=== PATIENT | male | born 1935 | race Two or more races ===

== ENCOUNTER 2016-12-09 19:08 | Inpatient (IN) | payer MEDICARE, BC ==
[~2016-12-09] VITALS: Ht 172.7 cm; Wt 77.1 kg
[2016-12-09 20:41] LABS: BASOPHILS % (AUTO) 0.8 % (0.0-2.0); DIFF TOTAL % 100 %; EOSINOPHILS # (AUTO) 0.1 /CMM (0.0-0.7); EOSINOPHILS % (AUTO) 1.9 % (0.0-6.0); HEMATOCRIT 40 % (39-51); HEMOGLOBIN 13.7 g/dL (13.5-17.5); LYMPHOCYTES # (AUTO) 0.9 /CMM (0.8-4.8); LYMPHOCYTES % (AUTO) 21.3 % (20.0-44.0); MEAN CORPUSCULAR HEMOGLOBIN 33 PG (26.0-33.0); MEAN CORPUSCULAR HGB CONC 34 g/dl (31.0-36.0); MEAN CORPUSCULAR VOLUME 95 fL (80-96); MONOCYTES # (AUTO) 0.4 /CMM (0.1-1.30); MONOCYTES % (AUTO) 9.3 % (2.0-12.0); NEUTROPHILS # (AUTO) 2.9 /CMM (1.8-8.9); NEUTROPHILS % (AUTO) 66.7 % (43.0-81.0); PLATELET COUNT (AUTO) 172 /CMM (150-450); RED BLOOD CELL COUNT(AUTO) 4.19 MIL/uL (4.5-6.0); WHITE BLOOD COUNT (AUTO) 4.4 K/uL (4.3-11.0)
[2016-12-09 20:55] LABS: ANION GAP 15 (5-14); CALCIUM, SERUM 8.9 mg/dL (8.5-10.1); CARBON DIOXIDE 25 mmol/L (21-32); CHLORIDE 109 mmol/L (98-107); CREATININE 1.6 mg/dL (0.6-1.3); GLUCOSE 100 mg/dL (74-106); POTASSIUM 4.1 mmol/L (3.5-5.1); SODIUM SERUM 145 mmol/L (136-145); UREA NITROGEN, BLOOD 17 mg/dL (7-18)
[2016-12-09 20:58] LABS: ALANINE AMINOTRANSFERASE 37 U/L (12-78); ALBUMIN 3.7 g/dL (3.4-5.0); ASPARTATE AMINOTRANSFERASE 21 U/L (15-37); BILIRUBIN,DIRECT 0.2 mg/dL (0.0-0.2); BILIRUBIN,TOTAL 1.2 mg/dL (0.2-1.0); TOTAL PROTEIN, SERUM 6.6 g/dL (6.4-8.2)
[2016-12-09 20:59] LABS: ACETAMINOPHEN 0 ug/ml (10-30)
[2016-12-09 21:41] LABS: ADD UA MICROSCOPIC NO; KETONES,URINE NEGATIVE (NEGATIVE); LEUKOCYTE ESTERASE ,URINE NEGATIVE (NEGATIVE)
[2016-12-09 21:56] LABS: CANNABINOID, URINE NEGATIVE (NEGATIVE); PHENCYCLIDINE SCREEN,URINE NEGATIVE (NEGATIVE)
[2016-12-10] MEDS ORDERED: MAG HYDROX/AL HYDROX/SIMETH 30 ML UDC PO PRN (01:30)
[2016-12-10] MEDS ORDERED: MAGNESIUM HYDROXIDE 30 ML UDC PO PRN (01:30)
[2016-12-10] MEDS ORDERED: QUET50TA76 (01:30)
[2016-12-10] MEDS ORDERED: ACETAMINOPHEN 325 MG TABLET PO PRN (01:30)
[2016-12-10] MEDS ORDERED: RIVA3CAP5 (01:30)
[2016-12-10] MEDS ORDERED: SERT100T12 (01:30)
[2016-12-10] MEDS ORDERED: LEVO125T (01:30)
[2016-12-10] MEDS ORDERED: MEMA10TA PO (01:37)
[2016-12-10] MEDS ORDERED: BENA40TA67 PO (01:37)
[2016-12-10 04:19] VITALS: BP 101/59
[2016-12-10 08:00] VITALS: BP 106/65
[2016-12-10] MEDS: BENAZEPRIL HCL 20 MG TABLET PO SCH (09:24)
[2016-12-10] MEDS: LEVOTHYROXINE SODIUM 125 MCG TABLET PO SCH (09:24)
[2016-12-10] MEDS ORDERED: IV NS 0.9% 1,000 ML BAG IV ONE (13:00)
[2016-12-10] MEDS ORDERED: IV SET PRIMARY PUMP SET 1 EA INFUS.SET MC ONE ×2 (14:30→14:42)
[2016-12-10] MEDS: clonazePAM 0.5 MG TABLET PO PRN (14:40)
[2016-12-10] MEDS: SERTRALINE HCL 50 MG TABLET PO SCH (15:22)
[2016-12-10] MEDS: QUETIAPINE FUMARATE 25 MG TABLET PO SCH ×2 (15:22→18:30)
[2016-12-10 16:00] VITALS: BP 152/66
[2016-12-10 20:35] VITALS: BP 153/67
[2016-12-10] MEDS: TEMAZEPAM 7.5 MG CAPSULE PO PRN (21:06)
[2016-12-11 08:00] VITALS: BP 140/58
[2016-12-11 08:10] LABS: CALCIUM, SERUM 8.2 mg/dL (8.5-10.1); CREATININE 1.7 mg/dL (0.6-1.3); POTASSIUM 3.7 mmol/L (3.5-5.1)
[2016-12-11 08:24] LABS: THYROID STIMULATING HORMONE 0.507 uIU/mL (0.358-3.74)
[2016-12-11] MEDS: QUETIAPINE FUMARATE 25 MG TABLET PO SCH ×2 (09:14→17:49)
[2016-12-11] MEDS: BENAZEPRIL HCL 20 MG TABLET PO SCH (09:14)
[2016-12-11] MEDS: LEVOTHYROXINE SODIUM 125 MCG TABLET PO SCH (09:14)
[2016-12-11] MEDS: SERTRALINE HCL 50 MG TABLET PO SCH (09:14)
[2016-12-11] MEDS: clonazePAM 0.5 MG TABLET PO PRN ×2 (09:15→17:51)
[2016-12-11 16:00] VITALS: BP 100/60
[2016-12-11 19:55] VITALS: BP 114/49
[2016-12-12 07:20] LABS: CALCIUM, SERUM 8.3 mg/dL (8.5-10.1); CREATININE 1.6 mg/dL (0.6-1.3); PHOSPHORUS 2.8 mg/dL (2.5-4.9); POTASSIUM 3.6 mmol/L (3.5-5.1)
[2016-12-12 07:23] LABS: BASOPHILS % (AUTO) 0.1 % (0.0-2.0); DIFF TOTAL % 100 %; HEMATOCRIT 35 % (39-51); HEMOGLOBIN 12.1 g/dL (13.5-17.5); LYMPHOCYTES % (AUTO) 9.7 % (20.0-44.0); MEAN CORPUSCULAR HEMOGLOBIN 33 PG (26.0-33.0); MEAN CORPUSCULAR HGB CONC 35 g/dl (31.0-36.0); MEAN CORPUSCULAR VOLUME 95 fL (80-96); MONOCYTES # (AUTO) 0.5 /CMM (0.1-1.30); MONOCYTES % (AUTO) 4.4 % (2.0-12.0); NEUTROPHILS % (AUTO) 85.8 % (43.0-81.0); PLATELET COUNT (AUTO) 115 /CMM (150-450); RED BLOOD CELL COUNT(AUTO) 3.64 MIL/uL (4.5-6.0); WHITE BLOOD COUNT (AUTO) 10.5 K/uL (4.3-11.0)
[2016-12-12 08:30] VITALS: BP 151/74
[2016-12-12] MEDS: LEVOTHYROXINE SODIUM 125 MCG TABLET PO SCH (09:42)
[2016-12-12] MEDS: QUETIAPINE FUMARATE 25 MG TABLET PO SCH ×2 (09:42→16:59)
[2016-12-12] MEDS: clonazePAM 0.5 MG TABLET PO PRN (09:42)
[2016-12-12] MEDS: BENAZEPRIL HCL 20 MG TABLET PO SCH (09:42)
[2016-12-12] MEDS: SERTRALINE HCL 50 MG TABLET PO SCH (09:44)
[2016-12-12 20:28] VITALS: BP 128/74
[2016-12-13 08:21] LABS: CALCIUM, SERUM 8.6 mg/dL (8.5-10.1); CREATININE 1.4 mg/dL (0.6-1.3); PHOSPHORUS 2.8 mg/dL (2.5-4.9); POTASSIUM 3.7 mmol/L (3.5-5.1)
[2016-12-13 08:30] VITALS: BP 131/70
[2016-12-13] MEDS: BENAZEPRIL HCL 20 MG TABLET PO SCH (09:00)
[2016-12-13] MEDS: LEVOTHYROXINE SODIUM 125 MCG TABLET PO SCH (09:00)
[2016-12-13] MEDS: SERTRALINE HCL 50 MG TABLET PO SCH (09:00)
[2016-12-13] MEDS: QUETIAPINE FUMARATE 25 MG TABLET PO SCH ×2 (09:00→14:34)
[2016-12-13] MEDS: clonazePAM 0.5 MG TABLET PO PRN (14:33)
[2016-12-13 16:00] VITALS: BP 130/71
[2016-12-13 20:00] VITALS: BP 138/70
[2016-12-14] MEDS: TEMAZEPAM 7.5 MG CAPSULE PO PRN (00:17)
[2016-12-14 08:49] VITALS: BP 139/81
[2016-12-14] MEDS: SERTRALINE HCL 50 MG TABLET PO SCH (09:05)
[2016-12-14] MEDS: QUETIAPINE FUMARATE 25 MG TABLET PO SCH ×2 (09:06→17:10)
[2016-12-14] MEDS: LEVOTHYROXINE SODIUM 125 MCG TABLET PO SCH (09:06)
[2016-12-14] MEDS: BENAZEPRIL HCL 20 MG TABLET PO SCH (09:06)
[2016-12-14 16:00] VITALS: BP 108/61
[2016-12-14 20:00] VITALS: BP 103/60
[2016-12-14] MEDS: clonazePAM 0.5 MG TABLET PO PRN (21:52)
[2016-12-15 08:00] VITALS: BP 110/61
[2016-12-15] MEDS: QUETIAPINE FUMARATE 25 MG TABLET PO SCH ×3 (08:31→17:57)
[2016-12-15] MEDS: LEVOTHYROXINE SODIUM 125 MCG TABLET PO SCH (08:31)
[2016-12-15] MEDS: SERTRALINE HCL 50 MG TABLET PO SCH (08:31)
[2016-12-15] MEDS: BENAZEPRIL HCL 20 MG TABLET PO SCH (08:32)
[2016-12-15 08:39] LABS: BASOPHILS % (AUTO) 0.3 % (0.0-2.0); DIFF TOTAL % 100 %; EOSINOPHILS % (AUTO) 0.5 % (0.0-6.0); HEMATOCRIT 36 % (39-51); HEMOGLOBIN 12.6 g/dL (13.5-17.5); LYMPHOCYTES # (AUTO) 0.5 /CMM (0.8-4.8); LYMPHOCYTES % (AUTO) 12.4 % (20.0-44.0); MEAN CORPUSCULAR HEMOGLOBIN 33 PG (26.0-33.0); MEAN CORPUSCULAR HGB CONC 35 g/dl (31.0-36.0); MEAN CORPUSCULAR VOLUME 94 fL (80-96); MONOCYTES # (AUTO) 0.3 /CMM (0.1-1.30); MONOCYTES % (AUTO) 6.5 % (2.0-12.0); NEUTROPHILS # (AUTO) 3.2 /CMM (1.8-8.9); NEUTROPHILS % (AUTO) 80.3 % (43.0-81.0); PLATELET COUNT (AUTO) 135 /CMM (150-450); RED BLOOD CELL COUNT(AUTO) 3.86 MIL/uL (4.5-6.0)
[2016-12-15 09:09] LABS: CALCIUM, SERUM 8.6 mg/dL (8.5-10.1); CREATININE 1.4 mg/dL (0.6-1.3); PHOSPHORUS 2.9 mg/dL (2.5-4.9); POTASSIUM 3.8 mmol/L (3.5-5.1)
[2016-12-15 16:00] VITALS: BP 147/81
[2016-12-15 16:38] VITALS: BP 147/81
[2016-12-15 18:19] LABS: KETONES,URINE NEGATIVE (NEGATIVE); LEUKOCYTE ESTERASE ,URINE 2+ (NEGATIVE)
[2016-12-15 19:48] LABS: ADD UA MICROSCOPIC YES
[2016-12-15 19:54] LABS: ADD URINE CULTURE YES
[2016-12-15 20:00] VITALS: BP 131/74
[2016-12-16] MEDS: TEMAZEPAM 7.5 MG CAPSULE PO PRN (00:52)
[2016-12-16 07:44] LABS: BASOPHILS % (AUTO) 0.3 % (0.0-2.0); DIFF TOTAL % 100 %; HEMATOCRIT 34 % (39-51); HEMOGLOBIN 11.8 g/dL (13.5-17.5); LYMPHOCYTES # (AUTO) 0.9 /CMM (0.8-4.8); LYMPHOCYTES % (AUTO) 17.6 % (20.0-44.0); MEAN CORPUSCULAR HEMOGLOBIN 32 PG (26.0-33.0); MEAN CORPUSCULAR HGB CONC 34 g/dl (31.0-36.0); MEAN CORPUSCULAR VOLUME 94 fL (80-96); MONOCYTES # (AUTO) 0.4 /CMM (0.1-1.30); MONOCYTES % (AUTO) 7.7 % (2.0-12.0); NEUTROPHILS # (AUTO) 3.7 /CMM (1.8-8.9); NEUTROPHILS % (AUTO) 74.4 % (43.0-81.0); PLATELET COUNT (AUTO) 121 /CMM (150-450); RED BLOOD CELL COUNT(AUTO) 3.64 MIL/uL (4.5-6.0)
[2016-12-16] MEDS: BENAZEPRIL HCL 20 MG TABLET PO SCH (08:05)
[2016-12-16] MEDS: LEVOTHYROXINE SODIUM 125 MCG TABLET PO SCH (08:05)
[2016-12-16] MEDS: SERTRALINE HCL 50 MG TABLET PO SCH (08:06)
[2016-12-16] MEDS: QUETIAPINE FUMARATE 25 MG TABLET PO SCH ×3 (08:06→16:27)
[2016-12-16] MEDS: Z GUARD REMEDY 2 OZ OINT TP SCH (08:07)
[2016-12-16 08:20] VITALS: BP 147/75
[2016-12-16 08:23] LABS: CALCIUM, SERUM 8.4 mg/dL (8.5-10.1); CREATININE 1.3 mg/dL (0.6-1.3); PHOSPHORUS 3.7 mg/dL (2.5-4.9); POTASSIUM 3.9 mmol/L (3.5-5.1)
[2016-12-16] MEDS: SULFAMETH/TRIMETH 800/160 MG 1 UDTAB TABLET PO SCH ×2 (10:59→21:16)
[2016-12-16] MEDS ORDERED: LEVOFLOXACIN (250MG) 250 MG TABLET PO SCH (12:30)
[2016-12-16 16:06] VITALS: BP 144/78
[2016-12-16 20:00] VITALS: BP 143/82
[2016-12-17] MEDS: TEMAZEPAM 7.5 MG CAPSULE PO PRN ×2 (00:16→21:06)
[2016-12-17] MEDS: LEVOTHYROXINE SODIUM 125 MCG TABLET PO SCH (07:30)
[2016-12-17 08:00] VITALS: BP 122/69
[2016-12-17] MEDS: SERTRALINE HCL 50 MG TABLET PO SCH (08:57)
[2016-12-17] MEDS: SULFAMETH/TRIMETH 800/160 MG 1 UDTAB TABLET PO SCH ×2 (08:58→20:12)
[2016-12-17] MEDS: BENAZEPRIL HCL 20 MG TABLET PO SCH (08:58)
[2016-12-17] MEDS: QUETIAPINE FUMARATE 25 MG TABLET PO SCH ×3 (08:58→17:05)
[2016-12-17] MEDS: Z GUARD REMEDY 2 OZ OINT TP SCH (09:03)
[2016-12-17 16:00] VITALS: BP 143/71
[2016-12-17 19:54] VITALS: BP 149/87
[2016-12-18] MEDS: LEVOTHYROXINE SODIUM 125 MCG TABLET PO SCH (07:30)
[2016-12-18 08:00] VITALS: BP 134/77
[2016-12-18 08:50] LABS: CALCIUM, SERUM 8.4 mg/dL (8.5-10.1); POTASSIUM 3.5 mmol/L (3.5-5.1)
[2016-12-18] MEDS: SERTRALINE HCL 50 MG TABLET PO SCH (09:06)
[2016-12-18] MEDS: QUETIAPINE FUMARATE 25 MG TABLET PO SCH ×3 (09:06→17:33)
[2016-12-18] MEDS: SULFAMETH/TRIMETH 800/160 MG 1 UDTAB TABLET PO SCH (09:06)
[2016-12-18] MEDS: BENAZEPRIL HCL 20 MG TABLET PO SCH (09:07)
[2016-12-18] MEDS: Z GUARD REMEDY 2 OZ OINT TP SCH (09:08)
[2016-12-18 16:00] VITALS: BP 139/81
[2016-12-18 20:20] VITALS: BP 124/61
[2016-12-18] MEDS: CEPHALEXIN MONOHYDRATE 500 MG CAPSULE PO SCH (20:31)
[2016-12-18] MEDS ORDERED: NITROFURANTOIN/NITROFURAN MAC 100 MG CAPSULE PO SCH (21:00)
[2016-12-19] MEDS: LEVOTHYROXINE SODIUM 125 MCG TABLET PO SCH (07:30)
[2016-12-19 07:53] LABS: CALCIUM, SERUM 8.9 mg/dL (8.5-10.1); CREATININE 1.7 mg/dL (0.6-1.3); POTASSIUM 4.4 mmol/L (3.5-5.1)
[2016-12-19 08:00] VITALS: BP 111/71
[2016-12-19] MEDS: CEPHALEXIN MONOHYDRATE 500 MG CAPSULE PO SCH ×2 (08:51→21:29)
[2016-12-19] MEDS: SERTRALINE HCL 50 MG TABLET PO SCH (08:52)
[2016-12-19] MEDS: QUETIAPINE FUMARATE 25 MG TABLET PO SCH ×3 (08:52→17:06)
[2016-12-19] MEDS: Z GUARD REMEDY 2 OZ OINT TP SCH (08:58)
[2016-12-19 15:51] VITALS: BP 102/54
[2016-12-19 16:00] VITALS: BP 102/54
[2016-12-19 20:00] VITALS: BP 107/59
[2016-12-19] MEDS: clonazePAM 0.5 MG TABLET PO PRN (20:19)
[2016-12-19] MEDS: TEMAZEPAM 7.5 MG CAPSULE PO PRN (21:29)
[2016-12-20] MEDS: QUETIAPINE FUMARATE 25 MG TABLET PO SCH ×2 (08:00→12:13)
[2016-12-20] MEDS: SERTRALINE HCL 50 MG TABLET PO SCH (08:00)
[2016-12-20] MEDS: CEPHALEXIN MONOHYDRATE 500 MG CAPSULE PO SCH (08:00)
[2016-12-20] MEDS: LEVOTHYROXINE SODIUM 125 MCG TABLET PO SCH (08:08)
[2016-12-20 08:18] VITALS: BP 118/74
[2016-12-20] MEDS: Z GUARD REMEDY 2 OZ OINT TP SCH (08:32)
== END 2016-12-20 14:45 | DRG 885 ==
LOC: ER 19:10 → GPS 12-10 00:31
PROVIDERS: ADMIT Psychiatry & Neurology Psychiatry; ATTEND Family Medicine
DX: F33.3 Major depressive disorder, recurrent, severe with psychotic symptoms (principal); N18.9 Chronic kidney disease, unspecified; N17.9 Acute kidney failure, unspecified; F03.91 Unspecified dementia, unspecified severity, with behavioral disturbance; N39.0 Urinary tract infection, site not specified; E03.9 Hypothyroidism, unspecified; I12.9 Hypertensive chronic kidney disease with stage 1 through stage 4 chronic kidney disease, or unspecified chronic kidney disease; F29 Unspecified psychosis not due to a substance or known physiological condition
CPT/HCPCS: 36415; 76856-TC; 80048-TC; 80061-TC; 80076-TC; 80305; 81000-TC; 82565-TC; 83735-TC; 84100-TC; 84443-TC; 85025-TC; 87081-TC; 87086-TC; 87186-TC; A4606; G0480; G6039-TC; J7030; Z7610